=== PATIENT | female | born 1980 | race Caucasian/White ===

== ENCOUNTER 2017-10-17 10:13 | Emergency (ER) | payer OTHER ==
[2017-10-17 11:50] VITALS: BP 137/77
--- NOTE | 2017-10-17 11:53 | ED Physician Documentation ---
History of Present Illness - Stated complaint Stated Complaint: FACIAL REDNESS/BURNING IN THROAT - Chief complaint Chief Complaint: Heent - Additonal information Additional information: 37-year-old female presents to the emergency department with sensation of facial burning, Itching and swelling and throat pain and swelling beginning this morning upon waking. She has had no fevers. She reports pain with swallowing. She has not had any difficulty breathing.She reports that she has taken no new medications and has had no change in her medications. She took 2 Benadryl prior to arrival and appears mildly sleepy on exam. 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 - Present Medications Home Medications: Ambulatory Orders Medication Instructions Recorded Confirmed Pregabalin [Lyrica] 300 mg ORAL DAILY 01/30/16 10/19/17 Docusate Sodium 250Mg Capsule 250 mg PO DAILY 10/17/17 10/19/17 [Colace 250Mg Capsule] oxyCODONE/ACET 5/325 [Percocet 5 1 tab PO DAILY 10/17/17 10/19/17 mg/325 mg] - Allergies Allergies/Adverse Reactions: Allergies Allergy/AdvReac Type Severity Reaction Status Date / Time acetaminophen [From Vicodin] Allergy Unknown Verified 10/17/17 10:21 gabapentin Allergy Unknown Verified 10/17/17 10:21 hydrocodone bitartrate * Allergy Unknown Verified 10/17/17 10:21 [From Vicodin] sumatriptan [From Imitrex] Allergy Unknown Verified 10/17/17 10:21 sumatriptan succinate * Allergy Unknown Verified 10/17/17 10:21 [From Imitrex] - Social History Does the pt smoke?: No Smoking Status: Never smoker Does the pt drink ETOH?: Yes ETOH Use: Wine Does the pt have substance abuse?: No - Immunizations Immunizations are current?: No - POLST Patient has POLST: No PD ED PE NORMAL - Vitals Vital signs reviewed: Yes - General General: Alert and oriented X 3, No acute distress - HEENT HEENT: PERRL, Moist mucous membranes, Other (Minimal facial swelling appreciated , no erythema No posterior pharyngeal edema or swelling or erythema Or exudates. Left sided tender anterior cervical lymph node.Full range of motion of neck.) - Neck Neck: Supple, no meningeal sign - Cardiac Cardiac: RRR, No murmur - Respiratory Respiratory: Clear bilaterally, Other (No stridor) - Abdomen Abdomen: Normal bowel sounds, Soft, Non tender, Non distended - Derm Derm: Warm and dry - Extremities Extremities: No deformity - Neuro Neuro: Alert and oriented X 3 - Psych Psych: Normal mood, Normal affect Results - Vitals Vitals: Oxygen O2 Source Room air - Labs Labs: Laboratory Tests 10/17/17 12:35 Ur Specific [place] <=1.005 Urine HCG, Qual NEGATIVE - Rads (name of study) neck Radiology: Prelim report reviewed, Final report received, Other (Neck x-ray Remote left apical lung surgery, early degenerative disc disease C4 through C5, stable and otherwise unremarkable exam) PD MEDICAL DECISION MAKING - ED course ED course: Sore throat with facial swelling, no evidence or anaphylaxis or airway compromise, normal soft tissue neck xray. Treated with steroid. Do not suspect strep pharyngitis, deep soft tissue infection or vascular issue as source of symptoms. Discussed return precautions for worsening symptoms. Departure - Departure Disposition: 01 Home, Self Care Clinical Impression: Facial swelling, Throat pain Condition: Fair Instructions: Sore Throat, ED Allerg React Other General Ch Comments: It is possible that you have had a allergic reaction today. It may also be that you have a viral illness. You can use Benadryl if you continue to have itching every 6 hours. Follow the instructions on the packaging. Return to the emergency department if you develop worsening symptoms such as difficulty breathing, difficulty swallowing, high fevers, headaches, worsening pain. Discharge Date/Time: 10/17/17 13:37
[2017-10-17] MEDS ORDERED: DEXAMETHASONE 10 MG/ML VIAL PO STA (12:07)
[2017-10-17] MEDS ORDERED: DEXAMETHASONE 10 MG/ML VIAL ONE (12:16)
[2017-10-17 12:49] LABS: HCG UR QUAL NEGATIVE
--- NOTE | 2017-10-17 13:14 | XRAY Preliminary Report ---
Exam: XR NECK SOFT TISSUE IMPRESSION: 1. Remote left apical lung surgery. 2. Early degenerative disk disease C4-C5. 3. Stable and otherwise unremarkable exam. [facility] SITE ID: [id number]
--- NOTE | 2017-10-17 13:24 | XRAY Report ---
EXAM: SOFT TISSUE NECK RADIOGRAPHY EXAM DATE: 10/17/2017 12:31 PM. CLINICAL HISTORY: Patient feels as if something is lodged in throat, beginning when she woke up this morning. No known choking or food ingestion incident to account for such. COMPARISONS: 3 view cervical spine 10/16/2015. TECHNIQUE: 2 views. FINDINGS: Soft Tissues: No prevertebral soft tissue swelling. The epiglottis and aryepiglottic folds are unrema rkable. No tonsillar or adenoidal enlargement. No radiopaque foreign body. Regional Skeleton: Stable mild narrowing C4-C5 without bony reactive changes indicating early degener ative disk disease. Unremarkable for age. Other: Bullae left lung apex. Remote surgery. IMPRESSION: 1. Remote left apical lung surgery. 2. Early degenerative disk disease C4-C5. 3. Stable and otherwise unremarkable exam. [facility] Referring Provider Line: [phone] SITE ID: [id number]
== END 2017-10-17 13:37 | disposition home or self-care (01) ==
LOC: ED 10:13
DX: R22.9 Localized swelling, mass and lump, unspecified (principal); R07.0 Pain in throat
CPT/HCPCS: 70360; 81025; 99283

== ENCOUNTER 2017-10-19 17:32 | Emergency (ER) | payer OTHER ==
--- NOTE | 2017-10-19 19:28 | XRAY Preliminary Report ---
Exam: XR CHEST 2 VIEW PA/LAT IMPRESSION: Normal 2-view chest radiography. [facility] SITE ID: [id number]
--- NOTE | 2017-10-19 19:46 | XRAY Report ---
EXAM: CHEST RADIOGRAPHY EXAM DATE: 10/19/2017 07:20 PM. CLINICAL HISTORY: Chest pain . COMPARISON: 01/22/2012. TECHNIQUE: 2 views. FINDINGS: Lungs/Pleura: No focal opacities evident. No pleural effusion. No pneumothorax. Normal volumes. Mediastinum: Heart and mediastinal contours are unremarkable. Other: None. IMPRESSION: Normal 2-view chest radiography. [facility] Referring Provider Line: [phone] SITE ID: [id number]
[2017-10-19] MEDS ORDERED: oxyCOD/ACETAMIN 5 MG/325 MG TABLET PO STA (21:06)
[2017-10-19] MEDS ORDERED: oxyCOD/ACETAMIN 5 MG/325 MG TABLET PO ONE (21:15)
--- NOTE | 2017-10-19 21:39 | ED Physician Documentation ---
History of Present Illness - Stated complaint Stated Complaint: CHEST PX - Chief complaint Chief Complaint: General - History obtained from History obtained from: Patient (pt is here for evaluation of left sided and retrosternal chest pain. she states that it started at approx 1400 today. she states that she was at work when it started. she says that it has continued since then, no cough, no shortness of breath no back pain, no travel, no leg swelling, no nausea or vomiting, no cough) Review of Systems Constitutional: denies: Fever, Chills Nose: reports: Sinus pressure / pain. denies: Rhinorrhea / runny nose Cardiac: reports: Chest pain / pressure. 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 - Present Medications Home Medications: Ambulatory Orders Medication Instructions Recorded Confirmed Pregabalin [Lyrica] 300 mg ORAL DAILY 01/30/16 10/19/17 Docusate Sodium 250Mg Capsule 250 mg PO DAILY 10/17/17 10/19/17 [Colace 250Mg Capsule] oxyCODONE/ACET 5/325 [Percocet 5 1 tab PO DAILY 10/17/17 10/19/17 mg/325 mg] - Allergies Allergies/Adverse Reactions: Allergies Allergy/AdvReac Type Severity Reaction Status Date / Time acetaminophen [From Vicodin] Allergy Unknown Verified 10/17/17 10:21 gabapentin Allergy Unknown Verified 10/17/17 10:21 hydrocodone bitartrate * Allergy Unknown Verified 10/17/17 10:21 [From Vicodin] sumatriptan [From Imitrex] Allergy Unknown Verified 10/17/17 10:21 sumatriptan succinate * Allergy Unknown Verified 10/17/17 10:21 [From Imitrex] - Social History Does the pt smoke?: No Smoking Status: Never smoker Does the pt drink ETOH?: Yes Does the pt have substance abuse?: No - Immunizations Immunizations are current?: No - POLST Patient has POLST: No PD ED PE NORMAL - Vitals Vital signs reviewed: Yes - General General: Alert and oriented X 3, Well developed/nourished - HEENT HEENT: Atraumatic, Moist mucous membranes - Cardiac Cardiac: RRR, No murmur, No gallop, Strong equal pulses - Respiratory Respiratory: No respiratory distress, Clear bilaterally - Abdomen Abdomen: Soft, Non tender - Back Back: No CVA TTP - Derm Derm: Normal color, Warm and dry, No rash - Extremities Extremities: No deformity - Neuro Neuro: Alert and oriented X 3, Normal speech Eye Opening: Spontaneous Motor: Obeys Commands Verbal: Oriented GCS Score: 15 - Psych Psych: Normal mood, Normal affect Results - Vitals Vitals: Vital Signs - 24 hr 10/19/17 10/19/17 10/19/17 17:37 19:54 21:06 Temperature 37.0 C 36.9 C Heart Rate 76 78 78 Respiratory 17 23 24 Rate Blood Pressure 111/75 105/71 104/79 O2 Saturation 98 98 100 Oxygen O2 Source Room air - EKG (time done) 1737 Rate: Rate (enter#) Rhythm: NSR [place]: Normal Intervals: Normal OR, QRS normal QRS: Normal Ischemia: Normal ST segments - Labs Labs: Laboratory Tests 10/19/17 20:39 Troponin I < 0.04 - Rads (name of study) CXR Radiology: Final report received PD MEDICAL DECISION MAKING - ED course Complexity details: d/w patient ED course: PERC neg, normal CXR and ECG and trop that was drawn 6 hours after the onset of the pain. Pt states that she was here a couple days ago for a facial rash and she was told to come back for new symptoms. Her sx today are not C/W anaphylaxis. No respiratory distress. no PNA and no indication for ABX. we discussed GERD medications but I told her that she could try OTC GERD meds. We discussed return precautions. Departure - Departure Disposition: 01 Home, Self Care Clinical Impression: Chest pain Condition: Good Instructions: ED Chest Pain Atypical Unkn Cause Follow-Up: Primary,care provider [Other] Comments: Follow up with your primary care provider. Return to the ER for any new symptoms
[2017-10-19 21:57] VITALS: BP 116/78
== END 2017-10-19 21:57 | disposition home or self-care (01) ==
LOC: ED 17:32
DX: R07.9 Chest pain, unspecified (principal)
CPT/HCPCS: 36415; 71020; 84484; 93005; 99283; 99284; A9270

== ENCOUNTER 2018-04-24 09:38 | Emergency (ER) | payer OTHER ==
[2018-04-24 09:46] VITALS: BP 125/85
[2018-04-24] MEDS ORDERED: TETANUS/DIPHTHERIA/PERTUSSIS 0.5 ML SYRINGE IM ONE (09:48)
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
== END 2018-04-24 10:12 | disposition home or self-care (01) ==
LOC: ED 09:38
DX: S51.851A Open bite of right forearm, initial encounter (principal); Z23 Encounter for immunization; Y04.1XXA Assault by human bite, initial encounter; Y99.0 Civilian activity done for income or pay
CPT/HCPCS: 90471; 99282; 99283

== ENCOUNTER 2018-04-25 16:52 | Emergency (ER) | payer OTHER ==
[2018-04-25] MEDS ORDERED: KETOROLAC 60 MG/2 ML VIAL IM STA (17:20)
[2018-04-25] MEDS ORDERED: HYDROmorphone 2 MG/ML VIAL IM STA (17:20)
--- NOTE | 2018-04-25 17:22 | ED Physician Documentation ---
PD HPI BACK INJURY - Stated complaint Stated Complaint: BACK PX - History obtained from History obtained from: Patient - History of Present Illness Location: Lower (37-year-old woman with chronic CRPS and history of intermittent back pain developed lumbar pain radiating up and down after lifting something 2 nights ago at home. There is no new weakness, numbness, or tingling. This pain does occasionally radiate into the right hip. 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 - Present Medications Home Medications: Ambulatory Orders Medication Instructions Recorded Confirmed Pregabalin [Lyrica] 300 mg ORAL DAILY 01/30/16 10/19/17 Docusate Sodium 250Mg Capsule 250 mg PO DAILY 10/17/17 10/19/17 [Colace 250Mg Capsule] oxyCODONE/ACET 5/325 [Percocet 5 1 tab PO DAILY 10/17/17 10/19/17 mg/325 mg] Methocarbamol [Robaxin-750] 750 mg PO TID PRN #20 tablet 04/25/18 - Allergies Allergies/Adverse Reactions: Allergies Allergy/AdvReac Type Severity Reaction Status Date / Time acetaminophen [From Vicodin] Allergy Unknown Verified 10/17/17 10:21 gabapentin Allergy Unknown Verified 10/17/17 10:21 hydrocodone bitartrate * Allergy Unknown Verified 10/17/17 10:21 [From Vicodin] sumatriptan [From Imitrex] Allergy Unknown Verified 10/17/17 10:21 sumatriptan succinate * Allergy Unknown Verified 10/17/17 10:21 [From Imitrex] - Social History Does the pt smoke?: No Smoking Status: Never smoker Does the pt drink ETOH?: Yes Does the pt have substance abuse?: No - Immunizations Immunizations are current?: No - POLST Patient has POLST: No PD ED PE NORMAL - Vitals Vital signs reviewed: Yes - General General: Alert and oriented X 3, No acute distress, Other (Comfortable at rest, winces with motion.) - Abdomen Abdomen: Soft, Non tender - Back Back: No spinal TTP, Other (Right-sided paralumbar tenderness.The patient has equal and normal Achilles and patellar reflexes bilaterally. Normal sensation in all areas of the legs. Patient denies saddle anesthesia. Normal strength in flexion-extension at the ankles, knees, and flexion of the hips.) - Neuro Neuro: Alert and oriented X 3, Normal speech Results - Vitals Vitals: Vital Signs - 24 hr 04/25/18 17:08 Temperature 36.9 C Heart Rate 89 Respiratory 16 Rate Blood Pressure 127/74 O2 Saturation 97 Oxygen O2 Source Room air PD MEDICAL DECISION MAKING - Sepsis Event Vital Signs: Vital Signs - 24 hr 04/25/18 17:08 Temperature 36.9 C Heart Rate 89 Respiratory 16 Rate Blood Pressure 127/74 O2 Saturation 97 Oxygen O2 Source Room air Departure - Departure Disposition: 01 Home, Self Care Clinical Impression: Back pain Qualifiers: Back pain location: low back pain Chronicity: acute Back pain laterality: right Sciatica presence: without sciatica Qualified Code(s): M54.5 - Low back pain Condition: Good Record reviewed to determine appropriate education?: Yes Instructions: ED Neck Back Pain General Prescriptions: Methocarbamol [Robaxin-750] 750 mg PO TID PRN #20 tablet PRN Reason: back pain Comments: Call your doctor to arrange a follow-up appointment, make the next available appointment. In the interim, return anytime if worse or if new symptoms develop.
[2018-04-25] MEDS ORDERED: ONDANSETRON ODT 4 MG TABLET TL STA (17:47)
[2018-04-25 18:32] VITALS: BP 122/75
== END 2018-04-25 18:27 | disposition home or self-care (01) ==
LOC: ED 16:52
DX: M54.5 Low back pain (principal); G90.50 Complex regional pain syndrome I, unspecified
CPT/HCPCS: 96372; 99283; J1170; Q0162

== ENCOUNTER 2018-11-30 13:51 | Emergency (ER) | payer OTHER ==
[2018-11-30] MEDS ORDERED: NAPROXEN 250 MG TABLET PO STA (14:17)
[2018-11-30] MEDS ORDERED: CYCLOBENZAPRINE 10 MG TABLET PO STA (14:17)
--- NOTE | 2018-11-30 14:19 | ED Physician Documentation ---
PD HPI BACK PAIN - Stated complaint Stated Complaint: BACK PX - Chief complaint Chief Complaint: Back Pain - History obtained from History obtained from: Patient - History of Present Illness Timing - onset: How many days ago (4) Timing - details: Gradual onset Severity Comments: moderate Location: Lower Quality: Pain, Spasm, Aching. No: Tearing Associated symptoms: No: Fever, Weakness, Numbness, Incontinent of urine, Unable to urinate, Hematuria, Incontinent of stool Improves with: Rest Worsened by: Movement, Lifting, Twisting Contributing factors: Lifting Recently seen: Not recently seen Review of Systems Constitutional: denies: Fever, Chills Eyes: denies: Discharge Ears: denies: Ear pain Nose: denies: Congestion Throat: denies: Sore throat Cardiac: denies: Chest pain / pressure GI: denies: Abdominal Pain : denies: Dysuria, Hematuria Skin: denies: Rash Musculoskeletal: reports: Back pain. 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 - Present Medications Home Medications: Ambulatory Orders Medication Instructions Recorded Confirmed Pregabalin [Lyrica] 300 mg ORAL DAILY 01/30/16 10/19/17 Docusate Sodium 250Mg Capsule 250 mg PO DAILY 10/17/17 10/19/17 [Colace 250Mg Capsule] oxyCODONE/ACET 5/325 [Percocet 5 1 tab PO DAILY 10/17/17 10/19/17 mg/325 mg] Methocarbamol [Robaxin-750] 750 mg PO TID PRN #20 tablet 04/25/18 Cyclobenzaprine [Flexeril] 10 mg PO TID PRN #20 tablet 11/30/18 - Allergies Allergies/Adverse Reactions: Allergies Allergy/AdvReac Type Severity Reaction Status Date / Time acetaminophen [From Vicodin] Allergy Unknown Verified 11/30/18 14:03 gabapentin Allergy Unknown Verified 11/30/18 14:03 hydrocodone bitartrate * Allergy Unknown Verified 11/30/18 14:03 [From Vicodin] sumatriptan [From Imitrex] Allergy Unknown Verified 11/30/18 14:03 sumatriptan succinate * Allergy Unknown Verified 11/30/18 14:03 [From Imitrex] - Social History Does the pt smoke?: No Smoking Status: Never smoker Does the pt drink ETOH?: Yes Does the pt have substance abuse?: No - Immunizations Immunizations are current?: Yes - POLST Patient has POLST: No PD ED PE NORMAL - General General: Alert and oriented X 3, No acute distress - HEENT HEENT: Atraumatic, PERRL, EOMI - Neck Neck: Supple, no meningeal sign - Cardiac Cardiac: RRR, Strong equal pulses - Respiratory Respiratory: No respiratory distress - Back Back: Other (The patient has paraspinal muscle tenderness in the lower lumbar region, no tenderness along the lumbar spinous processes or thoracic spinous processes) - Extremities Extremities: No deformity - Neuro Neuro: Alert and oriented X 3, No motor deficit, No sensory deficit - Psych Psych: Normal mood Results - Vitals Vitals: Vital Signs - 24 hr 11/30/18 13:59 Temperature 36.2 C L Heart Rate 97 Respiratory 14 Rate Blood Pressure 133/57 H O2 Saturation 99 Oxygen O2 Source Room air PD MEDICAL DECISION MAKING - ED course ED course: The patient has no red flags to suggest epidural abscess or acute cauda equina and currently I do not think an MRI emergently is warranted. The patient's symptoms represent most a musculoskeletal etiology and the patient appears appropriate for conservative management as an outpatient. I recommend follow-up with primary care for physical therapy. The patient is already on Daily P ercocet and no further narcotics will be prescribed or given in the emergency department. The patient will return to the emergency department for any worsening or any concerns Departure - Departure Disposition: 01 Home, Self Care Clinical Impression: Back pain Qualifiers: Back pain location: low back pain Chronicity: acute Back pain laterality: unspecified Sciatica presence: without sciatica Qualified Code(s): M54.5 - Low back pain Condition: Good Instructions: Lumbar Pain Causes, ED Exercises Lumbar Muscles Follow-Up: IAN Sands [Provider Group] - Within 1 week (Please ask your primary care to arrange for outpatient physical therapy. If your symptoms are not improving you may require an outpatient MRI to further assess your symptoms.) Prescriptions: Cyclobenzaprine [Flexeril] 10 mg PO TID PRN #20 tablet PRN Reason: Spasms Comments: Please return for any worsening or any concerns
[2018-11-30 14:26] VITALS: BP 130/60
== END 2018-11-30 14:25 | disposition home or self-care (01) ==
LOC: ED 13:51
DX: M54.5 Low back pain (principal)
CPT/HCPCS: 99283; A9270

== ENCOUNTER 2020-01-14 09:42 | Emergency (ER) | payer OTHER ==
--- NOTE | 2020-01-14 10:47 | XRAY Report ---
Reason: cough/fever Procedure Date: 01/14/2020 Accession Number: [id number] / [id number] Procedure: XR - Chest 2 View X-Ray CPT Code: 38457 Final Report FULL RESULT: EXAM: CHEST RADIOGRAPHY 2 VIEWS EXAM DATE: 01/14/2020. CLINICAL HISTORY: Cough. Fever. COMPARISON: PA and lateral chest on 10/19/2070. TECHNIQUE: PA and lateral views. FINDINGS: Lungs/Pleura: Normal vasculature. The lungs are clear. No pleural fluid or pneumothorax. Mediastinum: Normal cardiac and mediastinal contours. Bones: Minimal scoliosis. IMPRESSION: No radiographic cardiopulmonary abnormality. No change from 10/19/2017. [facility]
[2020-01-14 11:40] LABS: RAPID STREP SCREEN Negative (Negative)
[2020-01-14] MEDS ORDERED: DEXAMETHASONE 10 MG/ML VIAL PO STA (11:48)
[2020-01-14] MEDS ORDERED: cefTRIAXone 1 GM VIAL IM STA (11:48)
[2020-01-14] MEDS ORDERED: LIDOCAINE 1% 2 ML VIAL MC ONE (11:48)
[2020-01-14] MEDS ORDERED: KETOROLAC 60 MG/2 ML VIAL IM STA (11:48)
[2020-01-14] MEDS ORDERED: CHERRY SYRUP 10 ML UDC PO ONE (11:48)
--- NOTE | 2020-01-14 11:53 | ED Physician Documentation ---
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 She has had increase in her symptoms over the last 24 hours and is quite miserable. Review of Systems Constitutional: reports: Fever, Chills, Myalgias, Fatigue Eyes: denies: Decreased vision Ears: denies: Ear pain Nose: reports: Rhinorrhea / runny nose, Congestion Throat: reports: Sore throat Cardiac: denies: Chest pain / pressure, Palpitations Respiratory: reports: Cough. 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 - Present Medications Home Medications: Ambulatory Orders Medication Instructions Recorded Confirmed Pregabalin [Lyrica] 300 mg ORAL DAILY 01/30/16 10/19/17 Amox/Clav 875/125 [Augmentin] 1 each PO Q12H #20 tablet 01/14/20 Duloxetine HCl 30 mg PO QPM 01/14/20 01/14/20 Methadone HCl [Dolophine HCl] 5 mg PO BID 01/14/20 01/14/20 Oxycodone HCl/Acetaminophen 1 each PO QID PRN 01/14/20 01/14/20 [Oxycodon-Acetaminophen 7.5-325] tiZANidine [Zanaflex] 4 mg PO BID PRN 01/14/20 01/14/20 - Allergies Allergies/Adverse Reactions: Allergies Allergy/AdvReac Type Severity Reaction Status Date / Time gabapentin Allergy Unknown Verified 01/14/20 09:53 hydrocodone bitartrate * Allergy Unknown Verified 01/14/20 09:53 [From Vicodin] sumatriptan [From Imitrex] Allergy Unknown Verified 01/14/20 09:53 sumatriptan succinate * Allergy Unknown Verified 01/14/20 09:53 [From Imitrex] - Social History Does the pt smoke?: No Smoking Status: Never smoker Does the pt drink ETOH?: Yes Does the pt have substance abuse?: No - Immunizations Immunizations are current?: Yes - POLST Patient has POLST: No PD ED PE NORMAL - Vitals Vital signs reviewed: Yes (Tachycardic) - General General: Alert and oriented X 3, Well developed/nourished, Other (The patient's face is covered with a mask and she is huddled down sitting in the position and appears ill) - HEENT HEENT: Atraumatic, PERRL, EOMI, Other (There is erythema to the right tympanic membrane without distortion of the landmarks there is marked erythema to the posterior pharynx swelling of the uvula and postnasal drainage.) - Neck Neck: Supple, no meningeal sign, No bony TTP - Cardiac Cardiac: No murmur, Other (Tachycardia to 110) - Respiratory Respiratory: No respiratory distress, Clear bilaterally - Abdomen Abdomen: Soft, Non tender, Non distended, No organomegaly - Back Back: No CVA TTP, No spinal TTP - Derm Derm: Normal color, Warm and dry, No rash - Extremities Extremities: No deformity, No edema, No calf tenderness / cord - Neuro Neuro: No motor deficit, No sensory deficit, Normal speech Eye Opening: Spontaneous Motor: Obeys Commands Verbal: Oriented GCS Score: 15 - Psych Psych: Normal mood, Normal affect Results - Vitals Vitals: Vital Signs - 24 hr 01/14/20 01/14/20 09:49 11:24 Temperature 36.7 C 37.4 C Heart Rate 102 H 100 Respiratory 22 18 Rate Blood Pressure 122/70 103/57 L O2 Saturation 97 100 Oxygen O2 Source Room air - Labs Labs: Laboratory Tests 01/14/20 11:20 Group A Strep Rapid Negative - Rads (name of study) Chest Radiology: Prelim report reviewed (Impression: No radiographic cardiopulmonary abnormality. No change from 10/19/2017.), EMP read indepedently, See rad report PD MEDICAL DECISION MAKING - ED course Complexity details: reviewed results, re-evaluated patient, considered differential, d/w patient, d/w family ED course: 39-year-old female with an acute pharyngitis is coughing up yellow-green phlegm, she has otitis on examination, she has swelling to the uvula and no evidence of infiltrate on her chest x-ray. She is administered dexamethasone 10 mg orally 60 mg of Toradol IM and a gram of Rocephin IM. Rapid strep is negative we will place her on some Augmentin for otitis. Departure - Departure Disposition: 01 Home, Self Care Clinical Impression: Otitis media Qualifiers: Otitis media type: suppurative Chronicity: acute Laterality: right Recurrence: non-recurrent Spontaneous tympanic membrane rupture: without spontaneous rupture Qualified Code(s): H66.001 - Acute suppurative otitis media without spontaneous rupture of ear drum, right ear Condition: Stable Instructions: ED Otitis Media Acute Adult Follow-Up: [facility] [Provider Group] Prescriptions: Amox/Clav 875/125 [Augmentin] 1 each PO Q12H #20 tablet
[2020-01-14 12:18] VITALS: BP 111/58
== END 2020-01-14 12:23 | disposition home or self-care (01) ==
LOC: ED 09:42
DX: H66.001 Acute suppurative otitis media without spontaneous rupture of ear drum, right ear (principal); J02.9 Acute pharyngitis, unspecified; R05 Cough
CPT/HCPCS: 71046; 87070; 87430; 96372; 99284; A9270

== ENCOUNTER 2020-08-13 15:50 | Emergency (ER) | payer OTHER ==
[2020-08-13] MEDS ORDERED: HYDROmorphone 1 MG/ML CARPUJECT IM STA (16:17)
[2020-08-13] MEDS ORDERED: KETOROLAC 60 MG/2 ML VIAL IM STA (16:17)
--- NOTE | 2020-08-13 16:24 | ED Physician Documentation ---
PD HPI BACK PAIN - Stated complaint Stated Complaint: BACK PX - Chief complaint Chief Complaint: Back Pain - History obtained from History obtained from: Patient - Additional information Additional information: 39-year-old woman with history of chronic regional pain syndrome, she is maintained on methadone at a dose of 5 mg 3 times a day and Percocet 7.5 mg up to 4 times daily as needed. She has occasional back pain and about yearly has a flare of back pain. Over the last week without specific injury, she has had a similar issue with her back. Pain is in the left low back and radiates towards the left hip. There is no weakness, numbness, tingling, saddle anesthesia, fevers, incontinence, or possibility of . 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 - Present Medications Home Medications: Ambulatory Orders Medication Instructions Recorded Confirmed Pregabalin [Lyrica] 300 mg ORAL DAILY 01/30/16 10/19/17 Amox/Clav 875/125 [Augmentin] 1 each PO Q12H #20 tablet 01/14/20 Duloxetine HCl 30 mg PO QPM 01/14/20 01/14/20 Methadone HCl [Dolophine HCl] 5 mg PO BID 01/14/20 01/14/20 Oxycodone HCl/Acetaminophen 1 each PO QID PRN 01/14/20 01/14/20 [Oxycodon-Acetaminophen 7.5-325] tiZANidine [Zanaflex] 4 mg PO BID PRN 01/14/20 01/14/20 Meloxicam [Mobic] 7.5 mg PO BID PRN #20 tablet 08/13/20 - Allergies Allergies/Adverse Reactions: Allergies Allergy/AdvReac Type Severity Reaction Status Date / Time gabapentin Allergy Unknown Verified 08/13/20 15:57 hydrocodone bitartrate * Allergy Unknown Verified 08/13/20 15:57 [From Vicodin] sumatriptan [From Imitrex] Allergy Unknown Verified 08/13/20 15:57 sumatriptan succinate * Allergy Unknown Verified 08/13/20 15:57 [From Imitrex] - Social History Does the pt smoke?: No Smoking Status: Never smoker Does the pt drink ETOH?: Yes Does the pt have substance abuse?: No - Immunizations Immunizations are current?: Yes - POLST Patient has POLST: No PD ED PE NORMAL - Vitals Vital signs reviewed: Yes - General General: Alert and oriented X 3, Other (Winces with motion) - Abdomen Abdomen: Soft, Non tender - Back Back: Other (Mild muscular tenderness of the left paralumbar musculature and over the left greater trochanter of the hip with painless internal and external rotation of the left hip.) - Extremities Extremities: Other (The patient has equal and normal Achilles and patellar reflexes bilaterally. Normal sensation in all areas of the legs. Patient denies saddle anesthesia. Normal strength in flexion-extension at the ankles, knees, and flexion of the hips.) - Neuro Neuro: Alert and oriented X 3, Normal speech Results - Vitals Vitals: Vital Signs - 24 hr 08/13/20 08/13/20 15:57 16:06 Temperature 36.9 C 36.7 C Heart Rate 93 90 Respiratory 18 18 Rate Blood Pressure 115/74 132/68 H O2 Saturation 99 99 Oxygen O2 Source Room air PD MEDICAL DECISION MAKING - ED course ED course: This patient has seemingly uncomplicated musculoskeletal back pain. The patient has no "red flags." Specifically denies IV drug use, fevers, incontinence, saddle anesthesia. Spinal epidural abscess was considered, given that the patient has no fever, is not diabetic, has no spinal tenderness, does not use IV drugs, and has no bilateral neurologic symptoms, the diagnosis of spinal epidural abscess is considered exceedingly unlikely. Departure - Departure Disposition: 01 Home, Self Care Clinical Impression: Back pain Qualifiers: Back pain location: low back pain Chronicity: acute Back pain laterality: left Sciatica presence: without sciatica Qualified Code(s): M54.5 - Low back pain Condition: Good Record reviewed to determine appropriate education?: Yes Instructions: ED Low Back Pain Injury Prescriptions: Meloxicam [Mobic] 7.5 mg PO BID PRN #20 tablet PRN Reason: Pain Comments: Call your doctor to arrange a follow-up appointment, make the next available appointment. In the interim, return anytime if worse or if new symptoms develop. Forms: Activity restrictions
[2020-08-13 17:01] VITALS: BP 126/62
== END 2020-08-13 17:01 | disposition home or self-care (01) ==
LOC: ED 15:50
DX: M54.5 Low back pain (principal); F11.90 Opioid use, unspecified, uncomplicated
CPT/HCPCS: 96372; 99283; 99284; J1170

== ENCOUNTER 2023-05-23 12:22 | Outpatient (CLI) | payer OTHER | END 2023-05-23 12:23 | disposition home or self-care (01) | LOC: LAB 12:22 | PROVIDERS: ATTEND Obstetrics & Gynecology | DX: Z01.812 Encounter for preprocedural laboratory examination (principal); N92.0 Excessive and frequent menstruation with regular cycle; N94.6 Dysmenorrhea, unspecified | CPT/HCPCS: 86850; 86900; 86901 ==

== ENCOUNTER 2023-05-24 06:28 | Day surgery (SDC) | payer OTHER ==
[~2023-05-24 06:28] MED LIST: ACETAMINOPHEN 1,000 MG/100 ML 1,000 MG/100 ML BAG IV ONE; ceFAZolin 2 GM VIAL ONE
[2023-05-24] MEDS ORDERED: LACTATED RINGERS 1,000 ML IV ONE ×2 (06:34→10:48)
[2023-05-24 06:52] LABS: HCG UR QUAL NEGATIVE
[2023-05-24] MEDS ORDERED: BUPIVACAINE 0.25% PF 30 ML VIAL ONE (07:13)
[2023-05-24] MEDS ORDERED: LIDOCAINE 1%-EPI 1:100000 20 ML MDV ONE (07:13)
[2023-05-24] MEDS ORDERED: LIDOCAINE 2% URO-JET 5 ML SYRINGE UR ONE (07:13)
[2023-05-24] MEDS ORDERED: KETOROLAC 30 MG/ML VIAL ONE (07:22)
[2023-05-24] MEDS ORDERED: PROPOFOL 500 MG/50 ML 500 MG/50 ML VIAL ONE ×3 (07:22→09:50)
[2023-05-24] MEDS ORDERED: MIDAZOLAM 2 MG/2 ML VIAL ONE (07:22)
[2023-05-24] MEDS ORDERED: diphenhydrAMINE INJ 50 MG/ML VIAL ONE (07:22)
[2023-05-24] MEDS ORDERED: DEXAMETHASONE 4 MG/ML VIAL ONE (07:22)
[2023-05-24] MEDS ORDERED: fentaNYL 100 MCG/2 ML VIAL ONE (07:22)
[2023-05-24] MEDS ORDERED: ROCURONIUM 50 MG/5 ML VIAL ONE (07:22)
[2023-05-24] MEDS ORDERED: KETAMINE 200 MG/20 ML VIAL ONE (07:22)
[2023-05-24] MEDS ORDERED: ONDANSETRON 4 MG/2 ML VIAL ONE (07:22)
--- NOTE | 2023-05-24 08:10 | ANESTHESIA ---
Pre-Anesthesia VS, & Labs - Diagnosis dysmenorrhea - Procedure lap hysterectomy w cysto Vital Signs: Temp Pulse Resp BP Pulse Ox O2 Flow Rate 36.4 C L 80 16 126/61 98 0 05/24/23 06:50 05/24/23 06:50 05/24/23 06:50 05/24/23 06:50 05/24/23 06:50 05/24/23 06:50 Height: 5 ft 7 in Weight (kg): 85 kg Body Mass Index: 29.3 BMI Classification: Overweight - NPO >8 hours - Is Patient ?: No - Lab Results Lab results reviewed: Yes Home Medications and Allergies Home Medications: Ambulatory Orders Cyanocobalamin (Vitamin B-12) [Vitamin B-12] 2,500 mcg PO DAILY 05/18/23 Docusate Sodium [Stool Softener] 2 cap PO QPM 05/18/23 Loratadine [Claritin] 10 mg PO DAILY 05/18/23 Magnesium Oxide [Magnesium] 500 mg PO DAILY 05/18/23 Multivitamin 1 each PO DAILY 05/18/23 [place]-3/Dha/Epa/Fish Oil [Fish Oil 1,400 mg Softgel] 1 each PO DAILY 05/18/23 Pregabalin [Lyrica] 100 mg ORAL TID 01/30/16 Duloxetine HCl 100 mg PO BID 01/14/20 Methadone HCl [Dolophine HCl] 5 mg PO QID 01/14/20 Oxycodone HCl/Acetaminophen [Oxycodon-Acetaminophen 7.5-325] 1 each PO QID PRN 01/14/20 tiZANidine [Zanaflex] 8 mg PO QPM 01/14/20 Cyanocobalamin (Vitamin B-12) [Vitamin B-12] 2,500 mcg PO DAILY 05/18/23 Docusate Sodium [Stool Softener] 2 cap PO QPM 05/18/23 Loratadine [Claritin] 10 mg PO DAILY 05/18/23 Magnesium Oxide [Magnesium] 500 mg PO DAILY 05/18/23 Multivitamin 1 each PO DAILY 05/18/23 [place]-3/Dha/Epa/Fish Oil [Fish Oil 1,400 mg Softgel] 1 each PO DAILY 05/18/23 Allergies/Adverse Reactions: Allergies Allergy/AdvReac Type Severity Reaction Status Date / Time gabapentin Allergy severe Verified 05/18/23 14:37 headache hydrocodone bitartrate * Allergy nausea, Verified 05/18/23 14:37 [From Vicodin] headaches sumatriptan [From Imitrex] Allergy severe Verified 05/18/23 14:37 headache, throat closing up sumatriptan succinate * Allergy severe Verified 05/18/23 14:37 [From Imitrex] headache, throat closing up meeks AdvReac Emesis Verified 05/23/23 11:57 Anes History & Medical History - Anesthetic History Anesthesia Complications: reports: No previous complications Family history of Anesthesia Complications: Denies Family history of Malignant Hyperthermia: Denies - Medical History Cardiovascular: reports: None Pulmonary: reports: None Gastrointestinal: reports: Chronic constipation Urinary: reports: None Neuro: reports: Other (complex regional pain) Musculoskeletal: reports: Other Endocrine/Autoimmune: reports: None Skin: reports: Psoriasis Smoking Status: Never smoker - Surgical History Gynecologic: reports: section, Tubal ligation Exam General: Alert, Oriented x3, Cooperative Dental: WNL Mouth Openin Fingerbreadth Neck Mobility: Normal Mallampati classification: II Thyromental Distance: 4-6 cm Respiratory: Lungs clear Cardiovascular: Regular rate Plan Anesthesia Type: General Consent for Procedure(s) Verified and Reviewed: Yes Code Status: Attempt Resuscitation ASA classification: 2-Mild systemic disease Is this case an emergency?: No
[2023-05-24] MEDS ORDERED: HYDROmorphone 1 MG/ML CARPUJECT ONE (08:17)
[2023-05-24] MEDS ORDERED: BUPIVACAINE 0.25% PF 30 ML VIAL SUBQ ONE ×2 (08:19)
[2023-05-24] MEDS ORDERED: LIDOCAINE 1%-EPI 1:100000 20 ML MDV SUBQ ONE ×2 (08:20)
[2023-05-24] MEDS ORDERED: fentaNYL 100 MCG/2 ML VIAL IVP PRN (08:24)
[2023-05-24] MEDS ORDERED: HYDROmorphone 0.5 MG/0.5 ML SYRINGE IVP PRN (08:24)
[2023-05-24] MEDS ORDERED: ATROPINE ABBOJECT 1 MG/10 ML SYRINGE IVP PRN (08:24)
[2023-05-24] MEDS ORDERED: NALOXONE 0.4 MG/ML VIAL IVP PRN (08:24)
[2023-05-24] MEDS ORDERED: ONDANSETRON 4 MG/2 ML VIAL IVP PRN ×2 (08:24→10:38)
[2023-05-24] MEDS ORDERED: ePHEDrine 50 MG/ML VIAL IVP PRN (08:24)
[2023-05-24] MEDS ORDERED: LACTATED RINGERS 1,000 ML IV SCH (09:00)
[2023-05-24] MEDS ORDERED: LIDOCAINE-PF 2% 10 ML AMP SUBQ ONE (09:24)
[2023-05-24] MEDS ORDERED: SUGAMMADEX 200 MG/2 ML VIAL IVP ONE (09:25)
[2023-05-24] MEDS ORDERED: traMADol 50 MG TABLET PO SCH (12:00)
--- NOTE | 2023-05-24 13:19 | ANESTHESIA POST OP EVALUATION ---
Anesthesia Post Eval - Post Anesthesia Eval Vitals: Last Vital Signs Temp 36.8 C 05/24/23 12:45 Pulse 95 05/24/23 12:45 Resp 16 05/24/23 12:45 BP 138/63 H 05/24/23 12:45 Pulse Ox 100 05/24/23 12:45 O2 Flow Rate 0 05/24/23 06:50 CV Function Including HR & BP: Stable Pain Control: Satisfactory Nausea & Vomiting: Negative Mental Status: Baseline Respiratory Status: Airway Patent Hydration Status: Satisfactory Anesthesia Complications: None
[2023-05-24 13:20] LABS: HCT - HEMATOCRIT 27.3 % (37.0-47.0); HGB - HEMOGLOBIN 7.5 g/dL (12.0-16.0); MEAN CORPUSCULAR HEMOGLOBIN 19.6 pg (27.0-31.0); MEAN CORPUSCULAR HGB CONC 27.5 g/dL (32.0-36.0); MEAN CORPUSCULAR VOLUME 71.5 fL (81.0-99.0); MEAN PLATELET VOLUME 10.3 fL (7.9-10.8); RED BLOOD COUNT 3.82 10^6/uL (4.20-5.40); RED CELL DISTRIBUTION WIDTH 19.9 % (12.0-15.0); WHITE BLOOD COUNT 12.7 x10^3/uL (4.8-10.8)
[2023-05-24] MEDS: oxyCODONE 5 MG TABLET PO SCH ×2 (13:23→17:18)
[2023-05-24] MEDS ORDERED: PREGABALIN 100 MG CAPSULE PO SCH (14:00)
[2023-05-24] MEDS ORDERED: ACETAMINOPHEN 1,000 MG/100 ML 1,000 MG/100 ML BAG IV PRN (14:00)
[2023-05-24] MEDS ORDERED: FERRIC GLUCONATE 125 MG in SODIUM CHLORIDE 0.9% 100ML 100 ML IV ONE (15:00)
[2023-05-24] MEDS ORDERED: KETOROLAC 30 MG/ML VIAL IVP SCH (16:00)
[2023-05-24 17:27] VITALS: BP 126/58
[2023-05-24 17:37] LABS: HCT - HEMATOCRIT 27.4 % (37.0-47.0); HGB - HEMOGLOBIN 7.4 g/dL (12.0-16.0); MEAN CORPUSCULAR HEMOGLOBIN 19.3 pg (27.0-31.0); MEAN CORPUSCULAR VOLUME 71.5 fL (81.0-99.0); MEAN PLATELET VOLUME 10.6 fL (7.9-10.8); RED BLOOD COUNT 3.83 10^6/uL (4.20-5.40); RED CELL DISTRIBUTION WIDTH 20.1 % (12.0-15.0); WHITE BLOOD COUNT 13.9 x10^3/uL (4.8-10.8)
--- NOTE | 2023-05-24 18:11 | OPERATIVE REPORT ---
Operative Report - General Procedure Date: 05/24/23 Planned Procedure: LAVH/Bilateral salpingectomy/cystoscopy Pre-Op Diagnosis: Heavy menstrual bleeding Procedure Performed: LAVH/Bilateral salpingectomy/cystoscopy Post Op Diagnosis: Heavy menstrual bleeding - Procedure Note Primary Surgeon: Karla Cerrato DO Secondary Surgeon: Morales Villanueva MD Anesthesia Provider: Bong Henderson CRNA Anesthesia Technique: General ET tube Pathology: Uterus, tubes Estimated Blood Loss (mL): 100 Indications: Heavy menstrual bleeding Findings: Normal appearing uterus, oviducts with clips from sterilization, ovaries appear normal, uterus sounded to 10cm Complications: None - Other Other Information/Narrative: Patient taken to OR where GETA obtained without difficulty. Placed in dorsal lithotomy position and prepped and draped in sterile fashion. Diaz catheter placed. [place] speculum placed in vagina and anterior lip of cervix grasped with single tooth tenaculum. Large VCARE manipulator advanced into uterus. Speculum and tenaculum removed. Attention then turned to abdomen where 5mm skin incision made in umbilical fold. Veress needle carefully introduced into peritoneal cavity. Intraperitoneal placement confirmed with drop test and drop in intraabdominal pressure with CO2 gas insufflation. Trocar and sleeve advanced without difficulty into abdomen where intraabdominal placement confirmed with laparoscope. Two additional 5mm incisions made in pelvis bilaterally and trocars introduced under direct visualization. Lidocaine with epinephrine/0.25% marcaine injection prior to skin incisions x3. Aforementioned findings noted. Omental adhesions to anterior abdomen taken down with LigaSure. Left fallopian tube grasped and LigaSure device used for transection along mesosalpinx. This was repeated on the right fallopian tube. Tubes placed in cul de sac. Ovarian ligament transected bilaterally with LigaSure. Hemostasis noted. Dissection was carried down to uterine arteries bilaterally with LigaSure. Anterior leaf of broad ligament and bladder flap was created with Ligasure. L hook cautery was used to amputate cervix. Hemostasis ensured. Uterus removed vaginally. Vaginal cuff closed vaginally with series of figure of eight 0 vicryl sutures. Hemostasis noted. Attention then returned to abdomen. Pelvis irrigated and suctioned. One small area left apex with minor oozing so Surgicel applied. Hemostasis at all dissection sites. Trocars removed under direct visualization. Pneumoperitoneum released. Umbilical trocar removed. 5mm incisions x3 were closed with 4-0 Monocryl adn dermabond. Cystoscopy then performed. Jets noted from ureteral orifices bilaterally. No bleeding, sutures or defects noted in bladder. Vaginal cuff sutures cut. Hemostasis achieved with cautery. Sponge, lap, needle, and instrument counts were correct x2. Patient taken to PACU in stable condition.
== END 2023-05-24 19:00 | disposition home or self-care (01) ==
LOC: SDS 06:28 → MS2 12:44 → FBP 13:53 → SDS 19:00
PROVIDERS: ATTEND Obstetrics & Gynecology
PROC: 0UT9FZZ Resection of Uterus, Via Natural or Artificial Opening With Percutaneous Endoscopic Assistance (ICD-10-PCS; principal; 2023-05-24 07:30)
PROC: 0UT7FZZ Resection of Bilateral Fallopian Tubes, Via Natural or Artificial Opening With Percutaneous Endoscopic Assistance (ICD-10-PCS; 2023-05-24 07:30)
DX: N92.0 Excessive and frequent menstruation with regular cycle (principal); N94.6 Dysmenorrhea, unspecified; F17.200 Nicotine dependence, unspecified, uncomplicated
CPT/HCPCS: 36415; 58552; 81025; 82728; 85027; A9270; J0131; J1170; J1200; J2916; J3490; J7120

== ENCOUNTER 2023-08-19 09:04 | Emergency (ER) | payer OTHER ==
[2023-08-19 10:03] LABS: RAPID STREP SCREEN Negative (Negative)
--- NOTE | 2023-08-19 10:40 | ED Physician Documentation ---
PD HPI URI - Stated complaint Stated Complaint: CONGESTION/THROAT PX - Chief complaint Chief Complaint: Heent - History obtained from History obtained from: Patient - History of Present Illness Timing - onset: How many weeks ago (has had congestion and cough for aweek, but now with marked sore throat since ysetefday. Dx with strep peritonsillar celluitiis yesterday here in ER. Her son has sore throat and has positive strep rapid test.) Timing duration: Days Timing details: Abrupt onset, Still present, Still present in ED Associated symptoms: Fever, Chills, Nasal congestion, Sore throat, Swollen nodes, Dry cough Contributing factors: Sick contact (son and with strep throat confirmed positive tests.) Similar symptoms before: Has not had sx before Review of Systems Constitutional: reports: Fever, Chills, Myalgias Nose: reports: Rhinorrhea / runny nose Throat: reports: Sore throat Respiratory: reports: Cough GI: denies: Vomiting, Diarrhea Skin: denies: Rash Neurologic: reports: Generalized weakness. 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 - Present Medications Home Medications: Ambulatory Orders Medication Instructions Recorded Confirmed Pregabalin [Lyrica] 100 mg ORAL TID 01/30/16 08/19/23 Duloxetine HCl 100 mg PO BID 01/14/20 08/19/23 Methadone HCl [Dolophine HCl] 5 mg PO QID 01/14/20 08/19/23 Oxycodone HCl/Acetaminophen 1 each PO QID PRN 01/14/20 08/19/23 [Oxycodon-Acetaminophen 7.5-325] tiZANidine [Zanaflex] 8 mg PO QPM 01/14/20 08/19/23 Docusate Sodium [Stool Softener] 2 cap PO QPM 05/18/23 08/19/23 Magnesium Oxide [Magnesium] 500 mg PO DAILY 05/18/23 08/19/23 Multivitamin 1 each PO DAILY 05/18/23 08/19/23 Amoxicillin 500 mg PO TID #21 cap 08/19/23 - Allergies Allergies/Adverse Reactions: Allergies Allergy/AdvReac Type Severity Reaction Status Date / Time gabapentin Allergy severe Verified 08/19/23 09:36 headache hydrocodone bitartrate * Allergy nausea, Verified 08/19/23 09:36 [From Vicodin] headaches sumatriptan [From Imitrex] Allergy severe Verified 08/19/23 09:36 headache, throat closing up sumatriptan succinate * Allergy severe Verified 08/19/23 09:36 [From Imitrex] headache, throat closing up meeks AdvReac Emesis Verified 08/19/23 09:36 - Social History Does the pt smoke?: No Smoking Status: Never smoker Does the pt drink ETOH?: Yes Does the pt have substance abuse?: No - Immunizations Immunizations are current?: Yes - POLST Patient has POLST: No PD ED PE NORMAL - Vitals Vital signs reviewed: Yes - General General: Alert and oriented X 3, No acute distress, Well developed/nourished - HEENT HEENT: No: Pharynx benign (redness and swelling tonsils without peritonsillar swelling. ) - Neck Neck: Supple, no meningeal sign, Other (anterior adenopathy mild. ) - Cardiac Cardiac: RRR, No murmur - Respiratory Respiratory: Clear bilaterally - Derm Derm: Normal color, Warm and dry - Neuro Neuro: Alert and oriented X 3, No motor deficit, Normal speech Results - Vitals Vitals: Vital Signs - 24 hr 08/19/23 08/19/23 09:33 11:32 Temperature 37.1 C Heart Rate 94 85 Respiratory 15 15 Rate Blood Pressure 127/81 H 124/87 H O2 Saturation 98 100 Oxygen O2 Source Room air - Labs Labs: Laboratory Tests 08/19/23 09:38 Group A Strep Rapid Negative PD Medical Decision Making - ED course Complexity details: reviewed results, considered differential (URI sympotoms with now pharyngitis symptoms and son, with positive strep throat tests, similar symptoms. Will treat presumptively. ), d/w patient Departure - Departure Disposition: 01 Home, Self Care Clinical Impression: Acute streptococcal pharyngitis Condition: Stable Record reviewed to determine appropriate education?: Yes Instructions: ED Strep Pharyngitis Poss Follow-Up: [facility] [Provider Group] Prescriptions: Amoxicillin 500 mg PO TID #21 cap Comments: Your rapid strep test is negative and the throat culture will result in a couple of days. However given that you are son and are both positive for strep, it seems highly likely that yours is as well. We will treat it with amoxicillin 3 times daily with for a week. You were given a dose of an anti- inflammatory here as well that should help through today and tomorrow. Stay well-hydrated. Tylenol ibuprofen if needed for pains. Continue any other usual medicines. I sent a prescription to your preferred [facility]. Recheck if not improving well over the next few days. Forms: PCP List Discharge Date/Time: 08/19/23 11:33
[2023-08-19] MEDS ORDERED: ACETAMINOPHEN 325 MG TABLET PO STA (11:00)
[2023-08-19] MEDS ORDERED: AMOXICILLIN 250 MG CAPSULE PO STA (11:00)
[2023-08-19] MEDS ORDERED: dexAMETHasone 4 MG TABLET PO STA (11:00)
[2023-08-19 11:35] VITALS: BP 124/87; O2SAT 100
== END 2023-08-19 11:33 | disposition home or self-care (01) ==
LOC: ED 09:04
DX: J02.0 Streptococcal pharyngitis (principal)
CPT/HCPCS: 87070; 87430; 99283; A9270; J8540